=== PATIENT | female | born 1965 | race Caucasian/White ===

== ENCOUNTER 2016-12-28 18:47 | Emergency (ER) | payer OTHER ==
[~2016-12-28] VITALS: Ht 152.4 cm; Wt 48.1 kg
[~2016-12-28 18:47] MED LIST: AMOXICILLIN500 MG PO; ATIVAN1 MG; AUGMENTIN 500 M1 TAB PO; CEFADROXIL500 MG; DIFLUCAN150 MG PO; MOTRIN600 MG PO; NAPROSYN250 MG PO; NEURONTIN400 MG; PERCOCET 325 MG1 TA7; PREDNICOT20 MG PO; REQUIP1 MG; RESTORIL30 MG; TORADOL10 MG PO; ULTRAM50 MG PO; VICODIN 5/500 505 MG; WELLBUTRIN SR150 MG; ZANTAC 150 EFF150 M1
[2016-12-28] MEDS ORDERED: NERVE PILL (18:54)
[2016-12-28] MEDS ORDERED: AMBIEN5 MG PO (18:54)
[2016-12-28] MEDS ORDERED: KEFLEX500 M1 PO (19:10)
[2016-12-28] MEDS ORDERED: LIDEX 0.05% CRE15 GM T (19:10)
== END 2016-12-28 19:28 | disposition home or self-care (01) ==
LOC: ED 18:47
DX: L03.116 Cellulitis of left lower limb (principal); F17.200 Nicotine dependence, unspecified, uncomplicated

== ENCOUNTER 2017-02-08 10:30 | Emergency (ER) | payer OTHER ==
[~2017-02-08] VITALS: Ht 152.4 cm; Wt 47.2 kg
[~2017-02-08 10:30] MED LIST changes: +AMBIEN5 MG PO; +KEFLEX500 M1 PO; +LIDEX 0.05% CRE15 GM T; +NERVE PILL
[2017-02-08] MEDS ORDERED: NORTRIPTYLINE H25 M1 PO (10:36)
[2017-02-08] MEDS ORDERED: NAPROSYN500 MG PO (10:39)
== END 2017-02-08 11:27 | disposition home or self-care (01) ==
LOC: ED 10:30
DX: S92.345A Nondisplaced fracture of fourth metatarsal bone, left foot, initial encounter for closed fracture (principal); S92.355A Nondisplaced fracture of fifth metatarsal bone, left foot, initial encounter for closed fracture; S92.335A Nondisplaced fracture of third metatarsal bone, left foot, initial encounter for closed fracture; F17.200 Nicotine dependence, unspecified, uncomplicated; Z98.51 Tubal ligation status; Z90.710 Acquired absence of both cervix and uterus; Z98.890 Other specified postprocedural states; Z79.899 Other long term (current) drug therapy; W55.12XA Struck by horse, initial encounter; Y93.01 Activity, walking, marching and hiking; Y92.89 Other specified places as the place of occurrence of the external cause; Y99.9 Unspecified external cause status

== ENCOUNTER 2017-03-26 14:00 | Emergency (ER) | payer OTHER ==
[~2017-03-26] VITALS: Ht 152.4 cm; Wt 47.2 kg
[~2017-03-26 14:00] MED LIST changes: +NAPROSYN500 MG PO; +NORTRIPTYLINE H25 M1 PO
[2017-03-26] MEDS ORDERED: BENADRYL25 M2 PO (14:24)
[2017-03-26] MEDS ORDERED: MEDROL DOSEPAK4 MG PO (14:24)
== END 2017-03-26 15:59 | disposition home or self-care (01) ==
LOC: ED 14:00
DX: T63.441A Toxic effect of venom of bees, accidental (unintentional), initial encounter (principal); F17.200 Nicotine dependence, unspecified, uncomplicated; Z98.51 Tubal ligation status; Z90.710 Acquired absence of both cervix and uterus; Z98.890 Other specified postprocedural states; Z79.899 Other long term (current) drug therapy; Y92.9 Unspecified place or not applicable

== ENCOUNTER 2019-04-21 15:28 | Emergency (ER) | payer OTHER ==
[~2019-04-21] VITALS: Ht 152.4 cm; Wt 43.5 kg
--- NOTE | ~2019-04-21 | EKG ---
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
[~2019-04-21 15:28] MED LIST changes: +BENADRYL25 M2 PO; +MEDROL DOSEPAK4 MG PO
[2019-04-21 16:17] LABS: BILIRUBIN NEGATIVE (NEGATIVE); BLOOD NEGATIVE (NEGATIVE); CLARITY SL CLOUDY (CLEAR); COLOR YELLOW (YELLOW); GLUCOSE NEGATIVE (NEGATIVE); KETONE NEGATIVE (NEGATIVE); LEUKO ESTERASE NEGATIVE (NEGATIVE); NITRITE NEGATIVE (NEGATIVE); UROBILINOGEN 0.2 E.U./dl (0.2-1.0)
[2019-04-21 16:20] LABS: HEMATOCRIT 48.8 % (37.0-47.0); MEAN CELL VOLUME 92.8 fl (81.0-99.0); MEAN CORPUSCULAR HGB 30.4 pg (27.0-31.0); MEAN CORPUSCULAR HGB CONC 32.8 g/dl (33.0-37.0); MEAN PLATELET VOLUME 11.5 fl (9.6-12.3); PLATELET COUNT AUTOMATED 284 10*3/uL (130-400); RED BLOOD COUNT 5.26 10*6/uL (4.10-5.10); RED CELL DISTRI WIDTH 13.5 % (0-14.5); WHITE BLOOD COUNT 17.3 10*3/uL (4.8-10.8)
[2019-04-21 16:25] LABS: URINE AMPHETAMINES < 1000 (1000ng/ml); URINE BARBITURATES < 200 (200ng/ml); URINE BENZODIAZEPINES < 200 (200ng/ml); URINE CANNABINOIDS (THC) > 50 (50ng/ml); URINE COCAINE < 300 (300ng/ml); URINE METHADONE < 300 (300ng/ml); URINE OPIATES < 300 (300ng/ml)
[2019-04-21 16:29] LABS: URINE PHENCYCLIDINE < 25 (25ng/ml)
[2019-04-21 16:31] LABS: ACT PARTIAL THROMBO TIME 24.5 SECONDS (20.0-32.1); INTERNATIONAL NORM RATIO 0.9 (2.0-3.5)
[2019-04-21 16:38] LABS: BASOPHILS 2 % (0-1); TOTAL CELLS COUNTED 100 #CELLS
[2019-04-21 16:39] LABS: PLATELET SUFFICIENCY NORMAL (NORMAL)
[2019-04-21 16:45] LABS: ALBUMIN 4.5 gm/dl (3.1-4.5); ALKALINE PHOSPHATASE 107 U/L (45-117); BUN 9 mg/dl (7-24); CHLORIDE 104 mmol/L (98-107); CREATININE 1.07 mg/dL (0.55-1.02); LIPASE 125 U/L (73-393); POTASSIUM 3.5 mmol/L (3.5-5.1); SGOT/AST 21 IU/L (3-35); SGPT/ALT 18 U/L (12-78); SODIUM 137 mmol/L (136-145); TOTAL PROTEIN 8.5 gm/dL (6.4-8.2); TROPONIN I 0.016 ng/ml (<0.045)
[2019-04-21 17:13] LABS: ACETAMINOPHEN (TYLENOL) < 10.0 ug/ml (10-30); ETHYL ALCOHOL < 3.0 mg/dl (<3)
== END 2019-04-21 19:51 | disposition home or self-care (01) ==
LOC: ED 15:28
PROVIDERS: Emergency Medicine
DX: F43.21 Adjustment disorder with depressed mood (principal); Z79.899 Other long term (current) drug therapy; Z90.710 Acquired absence of both cervix and uterus

== ENCOUNTER 2019-06-02 21:59 | Emergency (ER) | payer OTHER ==
[~2019-06-02] VITALS: Ht 152.4 cm; Wt 52.2 kg
--- NOTE | ~2019-06-02 | EKG ---
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 : 1965 Requested By: YAZAN CARTER Order Number: [id number] Reading MD: Eugene Fernandez MD Measurements Intervals [place] Rate: 98 P: 53 [place]: 119 QRS: -19 QRSD: 71 T: 32 QT: 343 QTc: 438 Interpretive Statements Sinus rhythm Borderline short [place] interval Probable left atrial enlargement Borderline left axis deviation Low voltage, extremity leads Anteroseptal infarct, old Compared to ECG 04/21/2019 16:06:51 Low QRS voltage now present Myocardial infarct finding still present Electronically Signed On 06-03-2019 9:18:24 PST by Eugene Fernandez MD CM:EKGRPT:ELECTROCARDIOGRAM REPORT [id number] YAZAN ALVES DRAFT REPORT YAZAN CARTER DO
[2019-06-02 22:44] LABS: BILIRUBIN NEGATIVE (NEGATIVE); BLOOD NEGATIVE (NEGATIVE); CLARITY CLEAR (CLEAR); COLOR YELLOW (YELLOW); GLUCOSE NEGATIVE (NEGATIVE); KETONE NEGATIVE (NEGATIVE); LEUKO ESTERASE NEGATIVE (NEGATIVE); NITRITE NEGATIVE (NEGATIVE); UROBILINOGEN 0.2 E.U./dl (0.2-1.0)
[2019-06-02 22:52] LABS: URINE AMPHETAMINES < 1000 (1000ng/ml); URINE BARBITURATES < 200 (200ng/ml); URINE BENZODIAZEPINES < 200 (200ng/ml); URINE CANNABINOIDS (THC) > 50 (50ng/ml); URINE COCAINE < 300 (300ng/ml); URINE METHADONE < 300 (300ng/ml); URINE OPIATES < 300 (300ng/ml)
[2019-06-02 22:54] LABS: BACTERIA 2+; MUCOUS 1+
[2019-06-02 22:55] LABS: URINE PHENCYCLIDINE < 25 (25ng/ml)
[2019-06-02 23:36] LABS: BASO # 0.1 10*3/uL (0.0-0.1); BASO % 0.7 % (0.0-1.0); EOS # 1.2 10*3/uL (0.0-0.4); EOS % 9.6 % (1.0-4.0); HEMATOCRIT 39.7 % (37.0-47.0); HEMOGLOBIN 13.1 g/dl (12.0-16.0); LYMPH # 1.8 10*3/uL (1.3-4.4); LYMPH % 15.1 % (27.0-41.0); MEAN CELL VOLUME 91.1 fl (81.0-99.0); MEAN PLATELET VOLUME 10.6 fl (9.6-12.3); MONO # 0.8 10*3/uL (0.1-1.0); MONO % 6.4 % (3.0-9.0); NEUT # 8.2 10*3/uL (2.3-7.9); NEUT % 67.7 % (47.0-73.0); PLATELET COUNT AUTOMATED 349 10*3/uL (130-400); RED BLOOD COUNT 4.36 10*6/uL (4.10-5.10); RED CELL DISTRI WIDTH 12.9 % (0-14.5); WHITE BLOOD COUNT 12.1 10*3/uL (4.8-10.8)
[2019-06-02 23:55] LABS: ALBUMIN 3.1 gm/dl (3.1-4.5); ALKALINE PHOSPHATASE 89 U/L (45-117); BUN 5 mg/dl (7-24); CHLORIDE 110 mmol/L (98-107); CREATININE 0.96 mg/dL (0.55-1.02); POTASSIUM 3.9 mmol/L (3.5-5.1); SGOT/AST 22 IU/L (3-35); SGPT/ALT 15 U/L (12-78); SODIUM 140 mmol/L (136-145); TOTAL PROTEIN 7.3 gm/dL (6.4-8.2)
[2019-06-03 00:06] LABS: ACETAMINOPHEN (TYLENOL) < 5.0 ug/ml (10-30); ETHYL ALCOHOL < 3.0 mg/dl (<3)
== END 2019-06-03 10:35 | disposition home or self-care (01) ==
LOC: ED 21:59
PROVIDERS: Emergency Medicine
DX: F41.9 Anxiety disorder, unspecified (principal); F32.9 Major depressive disorder, single episode, unspecified; F17.200 Nicotine dependence, unspecified, uncomplicated; Z79.899 Other long term (current) drug therapy

== ENCOUNTER 2020-02-21 20:09 | Emergency (ER) | payer OTHER ==
[~2020-02-21] VITALS: Ht 152.4 cm; Wt 41.7 kg
[2020-02-21] MEDS ORDERED: IBU800 MG PO (21:31)
== END 2020-02-21 21:51 | disposition home or self-care (01) ==
LOC: ED 20:09
DX: S60.221A Contusion of right hand, initial encounter (principal); M25.531 Pain in right wrist; W22.8XXA Striking against or struck by other objects, initial encounter; Y93.89 Activity, other specified; Y92.89 Other specified places as the place of occurrence of the external cause; Y99.8 Other external cause status

== ENCOUNTER 2023-11-13 12:10 | Emergency (ER) | payer OTHER ==
[~2023-11-13] VITALS: Ht 152.4 cm; Wt 40.8 kg
[~2023-11-13 12:10] MED LIST changes: +IBU800 MG PO
[2023-11-13] MEDS ORDERED: KENALOG 0.1% LO60 ML T (12:25)
[2023-11-13] MEDS ORDERED: NAPROXEN375 MG PO (12:26)
[2023-11-13] MEDS ORDERED: SULFAMETHOXAZOLE-TMP (12:26)
[2023-11-13] MEDS ORDERED: CLINDAMYCIN HCL 300 MG CAPSULE PO ONE (12:30)
[2023-11-13] MEDS ORDERED: Acetaminophen/Oxycodone 5 MG/325 MG TABLET PO ONE (12:30)
[2023-11-13] MEDS ORDERED: CLINDAMYCIN HC300 MG PO (12:36)
[2023-11-13] MEDS ORDERED: TRAMADOL HCL50 MG PO (12:52)
== END 2023-11-13 12:28 | disposition home or self-care (01) ==
LOC: ED 12:10
DX: L02.211 Cutaneous abscess of abdominal wall (principal); F32.A Depression, unspecified; Z98.51 Tubal ligation status; Z90.710 Acquired absence of both cervix and uterus; Z98.890 Other specified postprocedural states

== ENCOUNTER → 2024-11-22 | Outpatient (CLI) | payer OTHER ==
[~2024-11-22] MED LIST changes: +CLINDAMYCIN HC300 MG PO; +KENALOG 0.1% LO60 ML T; +NAPROXEN375 MG PO; +SULFAMETHOXAZOLE-TMP; +TRAMADOL HCL50 MG PO
== END | disposition home or self-care (01) ==
LOC: CT 11-18 11:00
PROVIDERS: ATTEND Internal Medicine Critical Care Medicine
DX: Z12.2 Encounter for screening for malignant neoplasm of respiratory organs (principal); I25.10 Atherosclerotic heart disease of native coronary artery without angina pectoris; J43.9 Emphysema, unspecified; R91.8 Other nonspecific abnormal finding of lung field; Z87.891 Personal history of nicotine dependence

== ENCOUNTER 2025-02-11 20:37 | Emergency (ER) | payer OTHER ==
[~2025-02-11] VITALS: Ht 149.8 cm; Wt 41.7 kg
[2025-02-11] MEDS ORDERED: PREDNISONE20 M1 PO (21:43)
== END 2025-02-11 22:02 | disposition home or self-care (01) ==
LOC: ED 20:37
DX: T63.441A Toxic effect of venom of bees, accidental (unintentional), initial encounter (principal); R22.0 Localized swelling, mass and lump, head; J44.9 Chronic obstructive pulmonary disease, unspecified; F41.9 Anxiety disorder, unspecified; Z90.710 Acquired absence of both cervix and uterus; Y92.89 Other specified places as the place of occurrence of the external cause